=== PATIENT | female | born 1980 | race Caucasian/White ===

== ENCOUNTER 2021-11-09 01:41 | Emergency (ER) | payer OTHER ==
[~2021-11-09] VITALS: Ht 175.3 cm; Wt 80.7 kg
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
--- NOTE | 2021-11-09 02:11 | NUR ---
DR. SAMIA LUTHER AT PT'S BEDSIDE
[2021-11-09] MEDS ORDERED: LET SOLN TOPICAL 8 ML UDC TP ONE ×2 (02:15→02:30)
[2021-11-09] MEDS ORDERED: VANCOMYCIN 1 GM VIAL ONE (02:18)
[2021-11-09] MEDS ORDERED: TDAP [DIPH/PERTUSSIS/TET] 0.5 ML VIAL IM ONE ×2 (02:18→02:30)
[2021-11-09] MEDS ORDERED: VANCOMYCIN 1 GM in IV D5W 250 ML IV ONE (02:30)
--- NOTE | 2021-11-09 02:39 | NUR ---
IV LINE ESTABLISHED. RAC 20G
--- NOTE | 2021-11-09 02:44 | NUR ---
COVID ANTIGEN SWAB COLLECTED AND SENT TO LAB
[2021-11-09 02:45] LABS: BASOPHILS # (AUTO) 0.1 K/uL (0.0-0.2); BASOPHILS % (AUTO) 0.9 % (0.0-2.0); EOSINOPHILS % (AUTO) 0.9 % (0.0-6.0); HEMATOCRIT 36 % (33-45); HEMOGLOBIN 11.9 g/dL (11.5-14.8); LYMPHOCYTES # (AUTO) 2.1 K/uL (0.8-4.8); LYMPHOCYTES % (AUTO) 32.7 % (20.0-44.0); MEAN CORPUSCULAR HGB CONC 33 g/dl (31.0-36.0); MEAN CORPUSCULAR VOLUME 83 fL (82-100); MONOCYTES # (AUTO) 0.5 K/uL (0.1-1.30); MONOCYTES % (AUTO) 6.9 % (2.0-12.0); NEUTROPHILS # (AUTO) 3.8 K/uL (1.8-8.9); NEUTROPHILS % (AUTO) 58.6 % (43.0-81.0); PLATELET COUNT (AUTO) 258 K/uL (150-450); RED BLOOD CELL COUNT(AUTO) 4.37 MIL/uL (4.0-5.2); WHITE BLOOD COUNT (AUTO) 6.6 K/uL (4.3-11.0)
[2021-11-09 02:49] LABS: CALCIUM, SERUM 8.5 mg/dL (8.5-10.1); CREATININE 0.8 mg/dL (0.6-1.3); POTASSIUM 3.6 mmol/L (3.5-5.1)
[2021-11-09 02:56] LABS: ALBUMIN 3.5 g/dL (3.4-5.0); BILIRUBIN,DIRECT 0.1 mg/dL (0.0-0.2); BILIRUBIN,TOTAL 0.2 mg/dL (0.2-1.0); TOTAL PROTEIN, SERUM 7.3 g/dL (6.4-8.2)
--- NOTE | 2021-11-09 03:22 | NUR ---
SPOKE WITH [facility] FOR CLINICALS. CM WILL INITITATE PEER TO PEER FOR TRANSFER
--- NOTE | 2021-11-09 05:43 | NUR ---
PT ACCEPTED AT [facility]. PT IS GOING TO ROOM [id number]. CALL [phone] FOR REPORT
--- NOTE | 2021-11-09 06:14 | NUR ---
[facility] pickup scheduled for BLS transport to [facility]. 90 minute ETA
--- NOTE | 2021-11-09 06:23 | NUR ---
REPORT GIVEN TO ROSSY ROYAL AT [facility] FOR [facility]
--- NOTE | 2021-11-09 07:48 | NUR ---
PT SIGNED CONSENT FO TRANSFER
--- NOTE | 2021-11-09 08:12 | NUR ---
BREAKFAST TRAY PROVIDED. TOLERATED WELL.
[2021-11-09 08:17] VITALS: BP 112/63
--- NOTE | 2021-11-09 08:29 | NUR ---
[facility] ARRIVED, REPORT WAS GIVEN TO TRANSPORTATION, PT IS BEING TRANSFERRED TO [facility] IN STABLE CONDITION
== END 2021-11-09 08:30 | disposition short-term general hospital (02) ==
LOC: ER 01:44
DX: T24.031A Burn of unspecified degree of right lower leg, initial encounter (principal); T79.8XXA Other early complications of trauma, initial encounter; L03.115 Cellulitis of right lower limb; X17.XXXA Contact with hot engines, machinery and tools, initial encounter; Y92.89 Other specified places as the place of occurrence of the external cause; Z20.822 Contact with and (suspected) exposure to COVID-19
CPT/HCPCS: 36415; 80048; 80076; 83605; 85025; 87040 ×2; 87426; 90471; 90715; 96365; 99285; A6403; C9803; J3370; L0172